=== PATIENT | male | born 1970 | race Caucasian/White ===

== ENCOUNTER 2017-01-24 17:40 | Emergency (ER) | payer BC, MEDICAID ==
[~2017-01-24] VITALS: Ht 185.4 cm; Wt 94.2 kg
[~2017-01-24 17:40] MED LIST: ALBU5SOL5 INH; ASPI-496; FAMO-79; LISI-167; METO25TA9 PO; NAPR220C2
[2017-01-24] MEDS ORDERED: PROCHLORPERAZINE 5 MG/ML, 2ML ONE (17:53)
[2017-01-24] MEDS ORDERED: DIPHENHYDRAMINE 50 MG/ML, 1ML ONE (17:53)
[2017-01-24] MEDS ORDERED: PROCHLORPERAZINE 5 MG/ML, 2ML IVPush ONE (18:00)
[2017-01-24] MEDS ORDERED: SODIUM CHLORIDE 0.9% 1,000ML IVBOLUS ONE (18:00)
[2017-01-24] MEDS ORDERED: DIPHENHYDRAMINE 50 MG/ML, 1ML IVPush ONE (18:00)
[2017-01-24] MEDS ORDERED: LORazepam 2 MG/ML, 1ML ONE (18:14)
[2017-01-24 18:19] LABS: HEMOGLOBIN 13.5 g/dL (13.7-18.0)
[2017-01-24] MEDS ORDERED: TRAZ100T15 PO (18:21)
[2017-01-24] MEDS ORDERED: SERT100T5 PO (18:21)
[2017-01-24] MEDS ORDERED: GABA300C10 PO (18:21)
[2017-01-24] MEDS ORDERED: BUSP10TA PO (18:21)
[2017-01-24] MEDS ORDERED: LORazepam 2 MG/ML, 1ML IVPush ONE (18:30)
[2017-01-24 18:31] LABS: ASPARTATE AMINO TRANSFERASE 18 U/L (15-37); BLOOD UREA NITROGEN 15 mg/dL (7-18)
[2017-01-24 19:05] VITALS: BP 133/80
== END 2017-01-24 20:25 | disposition home or self-care (01) ==
LOC: ED 19:20
DX: G89.29 Other chronic pain (principal); R51 Headache; I10 Essential (primary) hypertension; F17.200 Nicotine dependence, unspecified, uncomplicated
CPT/HCPCS: 36415; 70450; 80053; 85025; 96361; 96374; 96375; 99285; J0780; J1200; J2060; J7030

== ENCOUNTER 2017-01-26 06:30 | Emergency (ER) | payer MEDICAID ==
[~2017-01-26] VITALS: Ht 185.4 cm; Wt 90.9 kg
[~2017-01-26 06:30] MED LIST changes: +BUSP10TA PO; +GABA300C10 PO; +SERT100T5 PO; +TRAZ100T15 PO
[2017-01-26] MEDS ORDERED: KETOROLAC 30 MG/1 ML IM ONE (08:30)
[2017-01-26] MEDS ORDERED: KETOROLAC 30 MG/1 ML ONE (08:47)
[2017-01-26] MEDS ORDERED: KETOROLAC 30 MG/1 ML IVPush ONE (09:00)
[2017-01-26] MEDS ORDERED: SODIUM CHLORIDE 0.9% 1,000ML IVBOLUS ONE (09:00)
[2017-01-26 09:07] LABS: BLOOD UREA NITROGEN 15 mg/dL (7-18)
[2017-01-26 09:23] LABS: HEMOGLOBIN 15.4 g/dL (13.7-18.0)
[2017-01-26 10:05] VITALS: BP 169/94
== END 2017-01-26 10:10 | disposition home or self-care (01) ==
LOC: ED 07:27
DX: J02.0 Streptococcal pharyngitis (principal); R09.81 Nasal congestion; I10 Essential (primary) hypertension; F10.20 Alcohol dependence, uncomplicated
CPT/HCPCS: 36415; 71020; 80048; 82040; 85025; 87880; 96374; 99285; J1885; J7030

== ENCOUNTER 2019-03-29 21:48 | Inpatient (IN) | payer MEDICAID ==
[~2019-03-29] VITALS: Ht 185.4 cm; Wt 84.7 kg
[~2019-03-29 21:48] MED LIST changes: -ALBU5SOL5 INH; +ALBU5SOL6 INH; +METO-282 PO; -METO25TA9 PO; +SERT100T32 PO; -SERT100T5 PO; +TRAZ-137 PO; -TRAZ100T15 PO
[2019-03-29 22:06] LABS: BASOPHILS # (AUTO) 0.04 x10^3/uL (0-0.1); BASOPHILS % (AUTO) 1 % (0-1); EOSINOPHILS # (AUTO) 0.24 x10^3/uL (0-0.4); EOSINOPHILS % (AUTO) 4 % (1-7); LYMPHOCYTES % (AUTO) 42 % (22-44); MD NO; MEAN CORPUSCULAR HEMOGLOBIN 31.9 pg (27.5-34.5); MEAN CORPUSCULAR HGB CONC 32.9 g/dL (33.2-36.2); MEAN CORPUSCULAR VOLUME 96.9 fL (81-97); MEAN PLATELET VOLUME 8.9 fL (7.4-10.4); MONOCYTES # (AUTO) 0.36 x10^3/uL (0.2-0.8); MONOCYTES % (AUTO) 5 % (2-9); NEUTROPHILS # (AUTO) 3.31 x10^3/uL (1.8-6.8); NEUTROPHILS % (AUTO) 48 % (42-75); PLATELET COUNT 316 x10^3/uL (130-400); RED BLOOD COUNT 4.72 x10^6/uL (4.38-5.82); RED CELL DISTRIBUTION WIDTH 12.9 % (9.4-14.8)
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
[2019-03-29 22:18] LABS: ALANINE AMINOTRANSFERASE 25 U/L (12-78); ALBUMIN 3.7 g/dL (3.4-5.0); ANION GAP 8 mmol/L (5-15); CALCIUM 8.8 mg/dL (8.5-10.1); CHLORIDE 116 mmol/L (98-107)
[2019-03-29 22:21] LABS: ALKALINE PHOSPHATASE 99 U/L (45-117); BILIRUBIN,TOTAL 0.3 mg/dL (0.2-1.0); TOTAL PROTEIN 7.4 g/dL (6.4-8.2)
[2019-03-29 22:26] LABS: SALICYLATE LEVEL < 1.7 mg/dL (2.8-20.0)
[2019-03-29 22:28] LABS: AMPHETAMINE SCREEN, URINE Positive (Negative); BARBITURATE SCREEN, URINE Negative (Negative); BENZODIAZEPINE SCREEN, URINE Positive (Negative); CANNABINOID SCREEN, URINE Negative (Negative); COCAINE SCREEN, URINE Negative (Negative); METHADONE SCREEN, URINE Negative (Negative); OPIATE SCREEN, URINE Negative (Negative)
--- NOTE | 2019-03-29 23:19 | NUR ---
Pt sleeping in bed. Resp even and unlabored.
--- NOTE | 2019-03-30 00:26 | NUR ---
Pt sleeping.Resp even and unlabored.
--- NOTE | 2019-03-30 01:02 | NUR ---
Pt sleeping. Awakes to voice. NAD.
--- NOTE | 2019-03-30 01:55 | NUR ---
Report to [place] JOYNER. Pt remains sleeping. Resp unlabored.
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
--- NOTE | 2019-03-30 02:52 | NUR ---
PT ASLEEP IN [facility] AT THIS TIME;
--- NOTE | 2019-03-30 05:15 | NUR ---
PT AWAKE. DR ARITA AT FOR PT HISTORY AND ASSESSMENT. PT VSS AT THIS TIME. PT PROVIDED WITH WATER PER REQUEST.
--- NOTE | 2019-03-30 06:08 | NUR ---
[facility] CALLED. DAE FOR CALL BACK TO GIVE PT INFO FOR MOBILE ASSESSMENT.
--- NOTE | 2019-03-30 06:26 | NUR ---
PT ASLEEP IN [facility] AT THIS TIME;
--- NOTE | 2019-03-30 07:00 | NUR ---
ASSUMED CARE OF PT. REPORT RECIEVED AT BEDSIDE. PT SLEEPING IN BED AT THIS TIME. NO EVIDENCE OF DISTRESS.
--- NOTE | 2019-03-30 07:30 | NUR ---
CALLED AND SPOKE TO CINTHIA @ [facility], LEFT ALL PATIENT INFO, WILL PASS ON TO [facility].
--- NOTE | 2019-03-30 08:30 | NUR ---
SPOKE WITH DR MULLEN REGARDING PT STATUS, HE IS APPROVING TRANSFER TO INPATIENT PSYCH. SYSTEMS ACCOUNTANT UPDATED.
--- NOTE | 2019-03-30 09:04 | NUR ---
PACKET FAXED TO [facility], [facility], AND [facility]
--- NOTE | 2019-03-30 10:03 | NUR ---
LATE ENTRY FOR 0900. RECEIVED BEDSIDE REPORT FROM AR PETERS. QUINTON DIAZ DELIVERED. ALL SAFETY MEASURES OBTAINED.
--- NOTE | 2019-03-30 10:08 | NUR ---
SPOKE WITH JOSÉ MIGUEL AT [facility]. GAVE HER REPORT. SHE STATES SHE WILL GIVE REPORT TO
--- NOTE | 2019-03-30 10:10 | NUR ---
SPOKE WITH JUANA AT [facility], REPORT GIVEN.
--- NOTE | 2019-03-30 10:10 | NUR ---
REPORT TO AR MEHTA.
--- NOTE | 2019-03-30 11:28 | NUR ---
The pt is lying in his bed with his eyes closed, he at 100% of his breakfast, the pt was given extra water with his breakfast. He states all needs met at this time.
--- NOTE | 2019-03-30 12:03 | NUR ---
The pt was given a large water, he drank approx 14 oz. of ice water, he has been calm and resting on the gurney.
--- NOTE | 2019-03-30 13:20 | NUR ---
The pt is currently having an IV started. He has his lunch at his bedside, the pt has been calm and cooperative, will continue to monitor. Sitter at the door.
[2019-03-30] MEDS ORDERED: SODIUM CHLORIDE 0.9% 1,000ML IVBOLUS ONE (13:30)
[2019-03-30 14:56] LABS: ANION GAP 5 mmol/L (5-15); CHLORIDE 117 mmol/L (98-107)
--- NOTE | 2019-03-30 15:08 | NUR ---
The pt is lying with his eyes closed, he has been calm and cooperative with all nursing care
--- NOTE | 2019-03-30 15:09 | NUR ---
The pt ate all of his lunch and has fluids at bedside
[2019-03-30] MEDS ORDERED: SODIUM CHLORIDE 0.45%, 1,000ML IVBOLUS ONE (15:30)
[2019-03-30] MEDS ORDERED: D5%-0.45% NACL 1,000 ML IV SCH (15:30)
--- NOTE | 2019-03-30 15:41 | NUR ---
The pt is currently receiving a second litre of fluids, the pt is encouraged to the drink extra fluids, extra fluids at his bedside.
--- NOTE | 2019-03-30 17:03 | NUR ---
IV fluids complete, pt lying with his eyes closed.
[2019-03-30 17:43] LABS: ANION GAP 6 mmol/L (5-15); CALCIUM 7.9 mg/dL (8.5-10.1); CHLORIDE 117 mmol/L (98-107); CREATININE 0.95 mg/dL (0.7-1.3)
--- NOTE | 2019-03-30 17:53 | NUR ---
AR Newell from [facility] called for the latest report on Labs, she also asked if we could fax assessment performed by the mobil kieselguhr regenerator operator and recent labs so she can present all of the information to a doctor. [facility] fax #[phone]
--- NOTE | 2019-03-30 18:17 | NUR ---
SPOKE WITH JUANA AT [facility]. PER HER THE MD ON AT THIS TIME WILL REQUIRE PT LABS TO BE WITHIN NORMAL LIMITS
--- NOTE | 2019-03-30 18:19 | NUR ---
Pt was given a "safety" dinner tray, he is currently sitting up and eating, 2 cups of water at his bedside. Pt encouraged to drink more fluids.
--- NOTE | 2019-03-30 19:25 | NUR ---
Received report from AR Marquez. Pt is currently sleeping and in no apparent distress. Equal chest rise and fall. Will continue to monitor.
--- NOTE | 2019-03-30 20:24 | NUR ---
Pt is cooperative with nursing care and vitals. Pt encouraged to drink fluids and nurse brought multiple cups of water to patient. Pt is currently reating and in no distress.
--- NOTE | 2019-03-30 21:40 | NUR ---
Pt sleeping in bed. Resp even and unlabored. Pt is encouraged to drink fluids when he is awake.
--- NOTE | 2019-03-30 22:18 | NUR ---
Spoke with admit nurse at [facility] and she requested his latest labs. CMP prdered and will call back [facility] with results. Pt encouraged to to consume fluids. Pt is currently sleeping and in no apparent distress. Chest has equal rise and fall.
--- NOTE | 2019-03-30 22:57 | NUR ---
Christoph with Phylicia at [facility] and gave her the updated sodium level. Phylicia stated she will speak to physician and call back.
--- NOTE | 2019-03-30 23:11 | NUR ---
Spoke with Phylicia at [facility] and was informed that physician will not take patient ntil NA level is within normal. Once in range, nurse on duty should fax over labs. Will continue to encourage fluids. Pt is currenltly sleeping and in no apparent distress. Equal chest rise ad fall.
--- NOTE | 2019-03-31 01:07 | NUR ---
Pt easily awoke for VS's. A;; VS's within normal limits. Pt encouraged to continue drinking fluids. Pt cooperative with all nursing care.
--- NOTE | 2019-03-31 02:09 | NUR ---
Pt sleeping in bed. Resp even and unlabored. Pt is encouraged to drink fluids when he is awake.
--- NOTE | 2019-03-31 03:17 | NUR ---
Pt sleeping in bed. Resp even and unlabored. Pt is encouraged to drink fluids when he is awake. Sitter in place.
--- NOTE | 2019-03-31 04:30 | NUR ---
Pt sleeping in bed. Resp even and unlabored. Sitter in doorway.
--- NOTE | 2019-03-31 05:21 | NUR ---
Pt sleeping in bed. Resp even and unlabored. Sitter in doorway. Nurse and monitor continue to encoiurage fluids when patient is awake.
--- NOTE | 2019-03-31 06:31 | NUR ---
Pt sleeping in bed. Resp even and unlabored. Sitter in doorway. Nurse and monitor continue to encourage fluids when patient is awake.
--- NOTE | 2019-03-31 07:39 | NUR ---
Pt is resting in no apparent distress. Sitter is present.
--- NOTE | 2019-03-31 08:27 | NUR ---
Pt was cooperative with blood draw and VS. He says he wants to go. Informed pt that he is awaiting transfer to [facility] for inpatient psych treatment and that he is on a legal hold. He isn't happy about this. He reports that his mood is "horrible" and he didn't sleep last night. He rates his depression as 12/10 and says anxiety is off the scale. When asked if he is suicidal he says he's worried about his car. Everything he owns is in his car and if he loses the car he loses everything. He says he doesn't have anyone who can help him with the car. When asked again if he is suicidal, having thoughts of harming himself or others, he says "no, of course not". He is guarded and doesn't make eye contact. When asked if he has hallucinations he said "not any good ones."
--- NOTE | 2019-03-31 09:07 | NUR ---
Pt ate his breakfast, then ambulated down the wick to use the restroom. Fluids are being encouraged as Na+ level has gone up to 150.
--- NOTE | 2019-03-31 09:28 | NUR ---
Pt reports that he is anxious and craving alcohol. He says he is looking for a way to get out of here so he can drink. He reports drinking 15-18 beers or shots daily for years and his last drink was 1 1/2 days ago. He was drunk on admit, breathalyzer 0.241. He has anxiety and mild tremors noted and says he feels like he is starting to detox. Dr. Baer informed, Ativan ordered.
[2019-03-31] MEDS ORDERED: LORazepam 1MG TABLET PO ONE (09:30)
[2019-03-31] MEDS ORDERED: LORazepam 1MG TABLET ONE (09:45)
--- NOTE | 2019-03-31 10:44 | NUR ---
Pt is sitting up eating. He reports feeling a little better after taking Ativan.
--- NOTE | 2019-03-31 11:57 | NUR ---
Pt is easily aroused for lunch. He reports good appetite and says he has less anxiety at this time.
--- NOTE | 2019-03-31 12:09 | NUR ---
Pt has been informed that he will be admitted to the medical floor. He understands and is agreeable.
--- NOTE | 2019-03-31 12:59 | NUR ---
Pt has had 4 cups plus 1 bottle of water so far this shift. He is given 2 more bottles of water and he agrees to drink them. He is making frequent trips to the bathroom.
--- NOTE | 2019-03-31 13:24 | NUR ---
Assumed care of this pt while primary RN on break: Pt lying in bed, asleep with even and unlabored respiration; appears comfortable; no needs at this time; sitter in direct view.
--- NOTE | 2019-03-31 14:27 | NUR ---
Pt is resting comfortably. He is easily aroused for VS, No complaints offered.
[2019-03-31] MEDS ORDERED: POLYETHYLENE GLYCOL 17 GM PACKET PO PRN (14:30)
[2019-03-31] MEDS ORDERED: CHLORDIAZEPOXIDE 25 MG CAPSULE PO PRN (14:30)
[2019-03-31] MEDS ORDERED: hydrALAzine 20 MG/ML, 1ML IVPush PRN (14:30)
[2019-03-31] MEDS ORDERED: HALOPERIDOL 5 MG/ML IVPush PRN (14:30)
[2019-03-31] MEDS ORDERED: LORazepam 1MG TABLET PO PRN ×5 (14:30→21:00)
--- NOTE | 2019-03-31 14:52 | NUR ---
Report given to Brianna JOYNER. Pt is ready to go to room 464.
[2019-03-31] MEDS: DEXTROSE 5% 1,000 ML IV SCH (15:30)
[2019-03-31] MEDS: GABAPENTIN 300 MG CAPSULE PO SCH ×2 (15:31→21:00)
[2019-03-31] MEDS: ENOXAPARIN 40 MG/0.4 ML SQ SCH (15:31)
[2019-03-31 16:26] VITALS: BP 138/85
[2019-03-31 19:20] VITALS: BP 142/86
[2019-03-31] MEDS ORDERED: NICOTINE 21 MG/24 HR PATCH.TD24 ONE ×2 (21:16)
[2019-03-31] MEDS: BUSPIRONE 10 MG TABLET PO SCH (21:30)
[2019-03-31] MEDS: TRAZODONE 100MG TABLET PO SCH (21:30)
[2019-03-31] MEDS: CHLORDIAZEPOXIDE 25 MG CAPSULE PO SCH (21:31)
[2019-03-31] MEDS: NICOTINE 21 MG/24 HR PATCH.TD24 TD SCH (21:32)
[2019-04-01 00:14] VITALS: BP 143/82
[2019-04-01] MEDS: DEXTROSE 5% 1,000 ML IV SCH ×3 (01:29→21:31)
[2019-04-01] MEDS: CHLORDIAZEPOXIDE 25 MG CAPSULE PO SCH ×3 (05:12→22:24)
[2019-04-01 06:50] LABS: BASOPHILS # (AUTO) 0.03 x10^3/uL (0-0.1); BASOPHILS % (AUTO) 1 % (0-1); EOSINOPHILS # (AUTO) 0.21 x10^3/uL (0-0.4); EOSINOPHILS % (AUTO) 4 % (1-7); LYMPHOCYTES # (AUTO) 2.05 x10^3/uL (1-3.4); LYMPHOCYTES % (AUTO) 39 % (22-44); MD NO; MEAN CORPUSCULAR HEMOGLOBIN 31.6 pg (27.5-34.5); MEAN CORPUSCULAR VOLUME 95.9 fL (81-97); MEAN PLATELET VOLUME 8.7 fL (7.4-10.4); MONOCYTES # (AUTO) 0.33 x10^3/uL (0.2-0.8); MONOCYTES % (AUTO) 6 % (2-9); NEUTROPHILS # (AUTO) 2.64 x10^3/uL (1.8-6.8); NEUTROPHILS % (AUTO) 50 % (42-75); PLATELET COUNT 227 x10^3/uL (130-400); RED BLOOD COUNT 4.45 x10^6/uL (4.38-5.82)
[2019-04-01 06:59] VITALS: BP 148/95
[2019-04-01 07:00] LABS: ALANINE AMINOTRANSFERASE 20 U/L (12-78); ALBUMIN 3.2 g/dL (3.4-5.0); ANION GAP 7 mmol/L (5-15); CALCIUM 8.3 mg/dL (8.5-10.1); CHLORIDE 114 mmol/L (98-107)
[2019-04-01 07:07] LABS: ALKALINE PHOSPHATASE 80 U/L (45-117); BILIRUBIN,TOTAL 0.3 mg/dL (0.2-1.0); TOTAL PROTEIN 6.4 g/dL (6.4-8.2)
[2019-04-01] MEDS: METOPROLOL SUCCINATE 25 MG TAB.ER.24H PO SCH (07:48)
[2019-04-01] MEDS: BUSPIRONE 10 MG TABLET PO SCH ×2 (07:48→21:28)
[2019-04-01] MEDS: SERTRALINE 100MG TABLET PO SCH (07:48)
[2019-04-01] MEDS: GABAPENTIN 300 MG CAPSULE PO SCH ×3 (07:48→21:28)
[2019-04-01] MEDS ORDERED: POTASSIUM CHLORIDE 20 MEQ TAB.ER.PRT PO ONE (11:30)
[2019-04-01] MEDS: ENOXAPARIN 40 MG/0.4 ML SQ SCH (13:08)
[2019-04-01] MEDS: LORazepam 0.5MG TABLET PO PRN (14:12)
[2019-04-01 14:21] VITALS: BP 127/78
[2019-04-01 20:52] VITALS: BP 121/76
[2019-04-01] MEDS: TRAZODONE 100MG TABLET PO SCH (21:29)
[2019-04-01] MEDS: NICOTINE 21 MG/24 HR PATCH.TD24 TD SCH (22:24)
[2019-04-02 02:14] VITALS: BP 144/81
[2019-04-02] MEDS: CHLORDIAZEPOXIDE 25 MG CAPSULE PO SCH ×3 (05:09→22:16)
[2019-04-02 06:01] LABS: BASOPHILS # (AUTO) 0.03 x10^3/uL (0-0.1); BASOPHILS % (AUTO) 1 % (0-1); EOSINOPHILS # (AUTO) 0.21 x10^3/uL (0-0.4); EOSINOPHILS % (AUTO) 4 % (1-7); LYMPHOCYTES % (AUTO) 39 % (22-44); MD NO; MEAN CORPUSCULAR HEMOGLOBIN 32.3 pg (27.5-34.5); MEAN CORPUSCULAR HGB CONC 33.4 g/dL (33.2-36.2); MEAN CORPUSCULAR VOLUME 96.5 fL (81-97); MONOCYTES # (AUTO) 0.38 x10^3/uL (0.2-0.8); MONOCYTES % (AUTO) 7 % (2-9); NEUTROPHILS # (AUTO) 2.62 x10^3/uL (1.8-6.8); NEUTROPHILS % (AUTO) 49 % (42-75); PLATELET COUNT 229 x10^3/uL (130-400); RED BLOOD COUNT 4.26 x10^6/uL (4.38-5.82)
[2019-04-02 06:16] LABS: CHLORIDE 116 mmol/L (98-107)
[2019-04-02 06:23] LABS: ALANINE AMINOTRANSFERASE 22 U/L (12-78); ALKALINE PHOSPHATASE 73 U/L (45-117); ANION GAP 5 mmol/L (5-15); BILIRUBIN,TOTAL 0.4 mg/dL (0.2-1.0); CALCIUM 8.4 mg/dL (8.5-10.1); CREATININE 0.93 mg/dL (0.7-1.3); TOTAL PROTEIN 6.2 g/dL (6.4-8.2)
[2019-04-02] MEDS: DEXTROSE 5% 1,000 ML IV SCH ×2 (06:31→13:29)
[2019-04-02] MEDS: METOPROLOL SUCCINATE 25 MG TAB.ER.24H PO SCH (08:12)
[2019-04-02] MEDS: BUSPIRONE 10 MG TABLET PO SCH ×2 (08:12→22:17)
[2019-04-02] MEDS: GABAPENTIN 300 MG CAPSULE PO SCH ×3 (08:12→22:17)
[2019-04-02] MEDS: SERTRALINE 100MG TABLET PO SCH (08:13)
[2019-04-02] MEDS: LORazepam 0.5MG TABLET PO PRN (08:18)
[2019-04-02 08:20] VITALS: BP 125/80
[2019-04-02] MEDS: THIAMINE 100MG TABLET PO SCH (13:27)
[2019-04-02] MEDS: MULTIVITAMIN 1 TABLET PO SCH (13:27)
[2019-04-02] MEDS: ENOXAPARIN 40 MG/0.4 ML SQ SCH (13:27)
[2019-04-02] MEDS: FOLIC ACID 1 MG TABLET PO SCH (13:28)
[2019-04-02 14:00] VITALS: BP 122/74
[2019-04-02 14:35] LABS: ANION GAP 4 mmol/L (5-15); CALCIUM 8.5 mg/dL (8.5-10.1); CHLORIDE 116 mmol/L (98-107); CREATININE 1.08 mg/dL (0.7-1.3)
[2019-04-02 19:36] VITALS: BP 143/89
[2019-04-02] MEDS: TRAZODONE 100MG TABLET PO SCH (22:17)
[2019-04-03] MEDS: DEXTROSE 5% 1,000 ML IV SCH (02:30)
[2019-04-03 02:57] VITALS: BP 105/68
[2019-04-03 05:27] LABS: CHLORIDE 115 mmol/L (98-107)
[2019-04-03 05:37] LABS: ALANINE AMINOTRANSFERASE 33 U/L (12-78); ALBUMIN 3.2 g/dL (3.4-5.0); ALKALINE PHOSPHATASE 69 U/L (45-117); ANION GAP 3 mmol/L (5-15); BILIRUBIN,TOTAL 0.2 mg/dL (0.2-1.0); CALCIUM 8.7 mg/dL (8.5-10.1); CREATININE 0.98 mg/dL (0.7-1.3); TOTAL PROTEIN 6.5 g/dL (6.4-8.2)
[2019-04-03] MEDS: CHLORDIAZEPOXIDE 25 MG CAPSULE PO SCH (05:45)
[2019-04-03 07:09] VITALS: BP 90/57
[2019-04-03] MEDS: METOPROLOL SUCCINATE 25 MG TAB.ER.24H PO SCH (09:00)
[2019-04-03] MEDS ORDERED: CHLORDIAZEPOXIDE 25 MG CAPSULE PO SCH (09:00)
[2019-04-03] MEDS: BUSPIRONE 10 MG TABLET PO SCH ×2 (09:15→20:37)
[2019-04-03] MEDS: GABAPENTIN 300 MG CAPSULE PO SCH ×3 (09:15→21:00)
[2019-04-03] MEDS: FOLIC ACID 1 MG TABLET PO SCH (09:16)
[2019-04-03] MEDS: THIAMINE 100MG TABLET PO SCH (09:16)
[2019-04-03] MEDS: MULTIVITAMIN 1 TABLET PO SCH (09:16)
[2019-04-03] MEDS: NICOTINE 21 MG/24 HR PATCH.TD24 TD SCH (09:18)
[2019-04-03 09:21] VITALS: BP 106/63
[2019-04-03] MEDS: SERTRALINE 100MG TABLET PO SCH (09:26)
[2019-04-03] MEDS ORDERED: LORazepam 1MG TABLET PO PRN (09:30)
[2019-04-03] MEDS: ENOXAPARIN 40 MG/0.4 ML SQ SCH (13:49)
[2019-04-03 14:42] VITALS: BP 108/59
[2019-04-03] MEDS ORDERED: FOLI-17 PO (16:24)
[2019-04-03] MEDS ORDERED: MULT1TAB60 PO (16:24)
[2019-04-03] MEDS ORDERED: THIA100T67 PO (17:11)
[2019-04-03] MEDS: TRAZODONE 100MG TABLET PO SCH (20:37)
== END 2019-04-03 20:00 | DRG 917 ==
LOC: ED 22:15 → EDIP 03-31 11:55 → 4NOR 03-31 15:10
PROVIDERS: ADMIT Internal Medicine; ATTEND Internal Medicine
PROC: HZ2ZZZZ Detoxification Services for Substance Abuse Treatment (ICD-10-PCS; principal; 2019-03-31)
DX: T42.4X1A Poisoning by benzodiazepines, accidental (unintentional), initial encounter (principal); G92 Toxic encephalopathy; E87.0 Hyperosmolality and hypernatremia; N17.9 Acute kidney failure, unspecified; F10.239 Alcohol dependence with withdrawal, unspecified; R45.851 Suicidal ideations; E86.0 Dehydration; F10.229 Alcohol dependence with intoxication, unspecified; F15.90 Other stimulant use, unspecified, uncomplicated; F17.200 Nicotine dependence, unspecified, uncomplicated; F32.9 Major depressive disorder, single episode, unspecified; I10 Essential (primary) hypertension; Z79.899 Other long term (current) drug therapy; Z71.6 Tobacco abuse counseling; Y92.89 Other specified places as the place of occurrence of the external cause; Y90.0 Blood alcohol level of less than 20 mg/100 ml
CPT/HCPCS: 36415; 80048; 80053; 80178; 80307; 83735; 84100; 84295; 85025; 96360; 96361; G0378; J1650; J7070; J7030

== ENCOUNTER 2019-05-03 07:52 | Emergency (ER) | payer MEDICAID ==
[~2019-05-03] VITALS: Ht 185.4 cm; Wt 83.5 kg
[~2019-05-03 07:52] MED LIST changes: +FOLI-17 PO; +MULT1TAB60 PO; +THIA100T67 PO
[2019-05-03 08:26] VITALS: BP 150/95
== END 2019-05-03 08:29 | disposition home or self-care (01) ==
LOC: ED 08:22
DX: H69.82 Other specified disorders of Eustachian tube, left ear (principal); I10 Essential (primary) hypertension; Z86.19 Personal history of other infectious and parasitic diseases
CPT/HCPCS: 99282

== ENCOUNTER 2019-05-25 04:04 | Emergency (ER) | payer MEDICAID ==
[~2019-05-25] VITALS: Ht 185.4 cm; Wt 80.6 kg
--- NOTE | 2019-05-25 04:31 | NUR ---
FIRST CONTACT WITH PT. PT STATES THAT HE STOPPED TAKING HIS PSYCH MEDS A FEW WEEKS AGO AND THAT HE IS NOT FEELING WELL. PT DENIES SI/HI. PT C/O ALL OVER THE BODY PAIN AND NAUSEA WELL. PT'S AOX4. RESPS EVEN AND UNLABORED.
[2019-05-25 05:20] LABS: BASOPHILS # (AUTO) 0.04 x10^3/uL (0-0.1); BASOPHILS % (AUTO) 1 % (0-1); EOSINOPHILS # (AUTO) 0.13 x10^3/uL (0-0.4); EOSINOPHILS % (AUTO) 2 % (1-7); LYMPHOCYTES # (AUTO) 2.66 x10^3/uL (1-3.4); LYMPHOCYTES % (AUTO) 42 % (22-44); MD NO; MEAN CORPUSCULAR HEMOGLOBIN 31.6 pg (27.5-34.5); MEAN CORPUSCULAR HGB CONC 33.7 g/dL (33.2-36.2); MEAN CORPUSCULAR VOLUME 93.7 fL (81-97); MEAN PLATELET VOLUME 8.5 fL (7.4-10.4); MONOCYTES % (AUTO) 11 % (2-9); NEUTROPHILS # (AUTO) 2.74 x10^3/uL (1.8-6.8); NEUTROPHILS % (AUTO) 44 % (42-75); PLATELET COUNT 298 x10^3/uL (130-400); RED CELL DISTRIBUTION WIDTH 13.1 % (9.4-14.8)
[2019-05-25 05:32] LABS: ALANINE AMINOTRANSFERASE 21 U/L (12-78); ALBUMIN 3.6 g/dL (3.4-5.0); ANION GAP 11 mmol/L (5-15); CALCIUM 8.8 mg/dL (8.5-10.1); CHLORIDE 111 mmol/L (98-107); CREATININE 0.92 mg/dL (0.7-1.3)
[2019-05-25 05:34] LABS: ALKALINE PHOSPHATASE 85 U/L (45-117); BILIRUBIN,TOTAL 0.5 mg/dL (0.2-1.0); SALICYLATE LEVEL < 1.7 mg/dL (2.8-20.0); TOTAL PROTEIN 6.8 g/dL (6.4-8.2)
--- NOTE | 2019-05-25 05:55 | NUR ---
PT PROVIDED SOME WATER FOR URINATE. URINAL AT BEDSIDE.
[2019-05-25 06:07] VITALS: BP 109/58
[2019-05-25] MEDS ORDERED: POTASSIUM CHLORIDE 20 MEQ TAB.ER.PRT ONE (06:18)
--- NOTE | 2019-05-25 06:23 | NUR ---
PT MEDICATED PER EMAR. PT TOLERATED WELL.
[2019-05-25] MEDS ORDERED: POTASSIUM CHLORIDE 20 MEQ TAB.ER.PRT PO ONE (06:30)
--- NOTE | 2019-05-25 06:56 | NUR ---
REPORT GIVEN TO SADAF JOYNER.
[2019-05-25 07:00] LABS: AMPHETAMINE SCREEN, URINE Positive (Negative); BARBITURATE SCREEN, URINE Negative (Negative); BENZODIAZEPINE SCREEN, URINE Positive (Negative); CANNABINOID SCREEN, URINE Negative (Negative); COCAINE SCREEN, URINE Negative (Negative); METHADONE SCREEN, URINE Negative (Negative); OPIATE SCREEN, URINE Negative (Negative)
== END 2019-05-25 08:11 | disposition home or self-care (01) ==
LOC: ED 05:12
DX: F33.0 Major depressive disorder, recurrent, mild (principal); Z91.14 Patient's other noncompliance with medication regimen; F41.9 Anxiety disorder, unspecified
CPT/HCPCS: 36415; 71045; 80053; 80307; 85025; 93005; 99284

== ENCOUNTER 2020-06-01 23:05 | Emergency (ER) | payer MEDICAID ==
[~2020-06-01] VITALS: Ht 185.4 cm; Wt 91.8 kg
[~2020-06-01 23:05] MED LIST changes: +MULT-449 PO; -MULT1TAB60 PO; -TRAZ-137 PO; +TRAZ-175 PO
[2020-06-01 23:06] VITALS: BP 157/89
--- NOTE | 2020-06-01 23:43 | NUR ---
Pt arrives to ed after stubbing right big toe against couch at home. Pt reports severe pain.
--- NOTE | 2020-06-02 00:10 | NUR ---
chart up for recheck
--- NOTE | 2020-06-02 00:11 | NUR ---
Report to Daly JOYNER
[2020-06-02] MEDS ORDERED: KETOROLAC 60 MG/2 ML ONE (00:28)
[2020-06-02] MEDS ORDERED: KETOROLAC 60 MG/2 ML IM ONE (00:30)
--- NOTE | 2020-06-02 00:37 | NUR ---
ASSUMED CARE OF PT MEDICATED FOR PAIN
== END 2020-06-02 01:28 | disposition home or self-care (01) ==
LOC: ED 06-02 01:16
DX: S90.111A Contusion of right great toe without damage to nail, initial encounter (principal); G89.11 Acute pain due to trauma; F17.210 Nicotine dependence, cigarettes, uncomplicated; I10 Essential (primary) hypertension; X58.XXXA Exposure to other specified factors, initial encounter; Y93.01 Activity, walking, marching and hiking; Y92.098 Other place in other non-institutional residence as the place of occurrence of the external cause; Y99.8 Other external cause status
CPT/HCPCS: 73660; 96372; 99283; 99406; J1885

== ENCOUNTER 2020-07-19 16:15 | Emergency (ER) | payer MEDICAID ==
[~2020-07-19] VITALS: Ht 185.4 cm; Wt 95.1 kg
--- NOTE | 2020-07-19 16:36 | NUR ---
PATIENT WALKED BACK FROM TRIAGE WITH CHIEF C/O LEFT LOWER BACK/HIP PAIN THAT STARTED 2 WEEKS AGO. PAIN DOES NOT RADIATE DOWN LEG. PATIENT DENIES ANY TRAUMA TO THE AREA. PATIENT STATES HE HAS TRIED OTC PAIN MEDICATION, HEAT, ICE AND REST WITH NO RELIEF. PAIN LEVEL RIGHT NOW IS 9/10. CONNECTED TO VITALS MACHINE, CALL LIGHT WITHIN REACH, NO SIGNS OF ACUTE DISTRESS.
[2020-07-19] MEDS ORDERED: NALT50TA PO (16:44)
[2020-07-19] MEDS ORDERED: BUSP5TAB2 PO (16:44)
[2020-07-19] MEDS ORDERED: OXYcodone/APAP 5/325MG TABLET ONE (17:17)
--- NOTE | 2020-07-19 17:18 | NUR ---
PATIENT IN IMAGING.
[2020-07-19] MEDS ORDERED: OXYcodone/APAP 5/325MG TABLET PO ONE (17:30)
--- NOTE | 2020-07-19 17:40 | NUR ---
PATIENT MEDICATED PER eMAR.
[2020-07-19 18:23] VITALS: BP 138/81
--- NOTE | 2020-07-19 18:24 | NUR ---
PATIENT RESTING IN [facility], STATES PAIN LEVEL IS NOW A 3/10 DOWN FROM A 9/10. VITAL SIGNS WITHIN NORMAL LIMITS. ERMD AT BEDSIDE TO DISCUSS POC.
--- NOTE | 2020-07-19 18:42 | NUR ---
DISCHARGE INSTRUCTIONS REVIEWED
== END 2020-07-19 18:44 | disposition home or self-care (01) ==
LOC: ED 17:09
DX: S39.012A Strain of muscle, fascia and tendon of lower back, initial encounter (principal); I10 Essential (primary) hypertension; F17.210 Nicotine dependence, cigarettes, uncomplicated; X58.XXXA Exposure to other specified factors, initial encounter; Y93.89 Activity, other specified; Y92.89 Other specified places as the place of occurrence of the external cause; Y99.8 Other external cause status
CPT/HCPCS: 72110; 99283; 99406

== ENCOUNTER 2020-12-10 01:55 | Emergency (ER) | payer MEDICAID ==
[~2020-12-10] VITALS: Ht 185.4 cm; Wt 96.8 kg
[~2020-12-10 01:55] MED LIST changes: +BUSP5TAB2 PO; -FOLI-17 PO; +FOLI1TAB32 PO; +NALT50TA PO
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
[2020-12-10] MEDS ORDERED: SODIUM CHLORIDE FLUSH 10ML SYR IVF ONE (02:30)
[2020-12-10 02:42] LABS: MEAN CORPUSCULAR HEMOGLOBIN 32.3 pg (27.5-34.5); MEAN CORPUSCULAR HGB CONC 34.3 g/dL (33.2-36.2); MEAN PLATELET VOLUME 8.3 fL (7.4-10.4); PLATELET COUNT 293 x10^3/uL (130-400); RED BLOOD COUNT 4.24 x10^6/uL (4.38-5.82); RED CELL DISTRIBUTION WIDTH 13.4 % (9.4-14.8)
[2020-12-10 02:50] LABS: ALANINE AMINOTRANSFERASE 25 U/L (12-78); ALBUMIN 3.6 g/dL (3.4-5.0); ANION GAP 11 mmol/L (5-15); CALCIUM 7.7 mg/dL (8.5-10.1); CHLORIDE 115 mmol/L (98-107); CREATININE 0.96 mg/dL (0.7-1.3)
[2020-12-10 02:52] LABS: ALKALINE PHOSPHATASE 86 U/L (45-117); BILIRUBIN,TOTAL 0.6 mg/dL (0.2-1.0)
[2020-12-10 03:12] LABS: MD YES
[2020-12-10 03:16] LABS: <PLATELET ESTIMATE> ADEQUATE; <PLT MORPHOLOGY> NORMAL PLT MORPH; <RBC MORPHOLOGY> NORMAL; EOS#(MANUAL) 0.06 x10^3/uL (0.0-0.4); EOS% (MANUAL) 1 % (1-7); LYMPH#(MANUAL) 2.42 x10^3/uL (1-3.4); LYMPHS% (MANUAL) 44 % (22-44); MONOS#(MANUAL) 0.06 x10^3/uL (0.3-2.7); MONOS% (MANUAL) 1 % (2-9); SEG#(MANUAL) 2.97 x10^3/uL (1.8-6.8); SEGS% (MANUAL) 54 % (42-75)
--- NOTE | 2020-12-10 03:39 | NUR ---
PT TO CT
[2020-12-10] MEDS ORDERED: OMNIPAQUE 350 MG/ML, 100ML BOTTLE ONE (04:01)
[2020-12-10 04:18] VITALS: BP 137/99
[2020-12-10] MEDS ORDERED: HYDROcodone/APAP 5/325 TABLET ONE (04:55)
[2020-12-10] MEDS ORDERED: HYDROcodone/APAP 5/325 TABLET PO ONE (05:00)
== END 2020-12-10 05:18 | disposition home or self-care (01) ==
LOC: ED 02:50
DX: S00.12XA Contusion of left eyelid and periocular area, initial encounter (principal); S20.212A Contusion of left front wall of thorax, initial encounter; S30.1XXA Contusion of abdominal wall, initial encounter; S09.90XA Unspecified injury of head, initial encounter; M94.0 Chondrocostal junction syndrome [Tietze]; I10 Essential (primary) hypertension; F17.200 Nicotine dependence, unspecified, uncomplicated; Y04.8XXA Assault by other bodily force, initial encounter; Y93.89 Activity, other specified; Y92.89 Other specified places as the place of occurrence of the external cause; Y99.8 Other external cause status
CPT/HCPCS: 36415; 70450; 70486; 71260; 74177; 80053; 85025; 99285; Q9967

== ENCOUNTER 2021-06-27 13:51 | Emergency (ER) | payer MEDICAID ==
[~2021-06-27] VITALS: Ht 185.4 cm; Wt 89.0 kg
[2021-06-27 15:39] VITALS: BP 137/83
== END 2021-06-27 15:40 | disposition home or self-care (01) ==
LOC: ED 14:56
DX: S20.211A Contusion of right front wall of thorax, initial encounter (principal); W01.0XXA Fall on same level from slipping, tripping and stumbling without subsequent striking against object, initial encounter; Y93.89 Activity, other specified; Y92.89 Other specified places as the place of occurrence of the external cause; Y99.8 Other external cause status; F17.210 Nicotine dependence, cigarettes, uncomplicated
CPT/HCPCS: 71250; 99284

== ENCOUNTER 2021-07-11 20:41 | Emergency (ER) | payer MEDICAID ==
[~2021-07-11] VITALS: Ht 185.4 cm; Wt 88.0 kg
[2021-07-11 20:47] VITALS: BP 141/98
--- NOTE | 2021-07-11 22:46 | NUR ---
Patient NIL x3 by providers.
== END 2021-07-11 22:47 | disposition left against medical advice (07) ==
LOC: ED 21:00
DX: T20.17XA Burn of first degree of neck, initial encounter (principal); T31.0 Burns involving less than 10% of body surface; X08.8XXA Exposure to other specified smoke, fire and flames, initial encounter; Y93.89 Activity, other specified; Y92.89 Other specified places as the place of occurrence of the external cause; Y99.8 Other external cause status; R94.31 Abnormal electrocardiogram [ECG] [EKG]
CPT/HCPCS: 93005; 99283